=== PATIENT | male | born 1945 | race Caucasian/White ===

== ENCOUNTER 2016-12-01 19:54 | Emergency (ER) | payer OTHER, SELFPAY ==
[~2016-12-01 19:54] MED LIST: ASPIRIN EC325 MG PO; BENADRYL25 MG PO; COREG12.5 MG PO; COZAAR50 MG PO; GLUCOTROL5 MG PO; HYDROCODON-ACE1 EAC2 PO; JANUVIA50 MG PO; KLONOPIN1 MG PO; LAMICTAL25 MG PO; LANOXIN125 MCG PO; VISTARIL50 MG PO; VITAMIN C1000 MG PO; VITAMIN D32000 UNI1 PO; VITAMIN E1000 UNI1 PO
== END 2016-12-01 22:20 | disposition home or self-care (01) ==
LOC: ER 19:54
DX: R11.0 Nausea (principal); R25.1 Tremor, unspecified; F41.9 Anxiety disorder, unspecified; E11.9 Type 2 diabetes mellitus without complications; I48.91 Unspecified atrial fibrillation; D64.9 Anemia, unspecified; Z79.899 Other long term (current) drug therapy; Z95.1 Presence of aortocoronary bypass graft; Z79.4 Long term (current) use of insulin; Z79.82 Long term (current) use of aspirin; Z88.2 Allergy status to sulfonamides; Z88.8 Allergy status to other drugs, medicaments and biological substances; Z91.041 Radiographic dye allergy status
CPT/HCPCS: 36415; 80307

== ENCOUNTER 2017-03-26 00:31 | Emergency (ER) | payer OTHER, SELFPAY | END 2017-03-26 02:38 | disposition home or self-care (01) | LOC: ER 00:31 | DX: R33.9 Retention of urine, unspecified (principal); F41.9 Anxiety disorder, unspecified; E78.5 Hyperlipidemia, unspecified; Z95.5 Presence of coronary angioplasty implant and graft; Z79.82 Long term (current) use of aspirin; Z79.4 Long term (current) use of insulin; Z88.5 Allergy status to narcotic agent; Z91.041 Radiographic dye allergy status; Z88.8 Allergy status to other drugs, medicaments and biological substances ==